=== PATIENT | male | born 2000 | race Caucasian/White ===

== ENCOUNTER 2024-01-20 03:38 | Emergency (ER) | payer SELFPAY ==
[~2024-01-20] VITALS: Ht 188 cm; Wt 70.3 kg
== END 2024-01-20 04:35 | disposition home or self-care (01) ==
LOC: ER 03:38
DX: S31.21XA Laceration without foreign body of penis, initial encounter (principal); X58.XXXA Exposure to other specified factors, initial encounter
CPT/HCPCS: 99282